=== PATIENT | male | born 1970 | race Two or more races ===

== ENCOUNTER 2021-02-06 19:53 | Emergency (ER) | payer MEDICAID, OTHER ==
[~2021-02-06] VITALS: Ht 165.1 cm; Wt 74.8 kg
[2021-02-06 19:55] VITALS: BP 138/81
== END 2021-02-06 20:07 | disposition left against medical advice (07) ==
LOC: ER 20:00
DX: R10.32 Left lower quadrant pain (principal); Z53.21 Procedure and treatment not carried out due to patient leaving prior to being seen by health care provider